=== PATIENT | female | born 1975 | race Caucasian/White ===

== ENCOUNTER 2022-01-05 01:43 | Day surgery (SDC) | payer OTHER, SELFPAY ==
[2021-12-20 15:15] VITALS: BMI 22.3
[2022-01-05 10:10] VITALS: BP 142/84; PULSE 74; RESP 18; TEMP 36.2; O2SAT 100
--- NOTE | 2022-01-05 10:24 | WPDANESEPPF ---
Anes - Initial Pre Proc Eval Procedure: Operation Date: 01/05/22 11:30 Proposed Procedures p Flexible Sigmoidoscopy - Lloyd Whitten MD Date/Time: 01/05/22 10:24 Surgeon: Lloyd Whitten MD Pre Op Diagnosis: constipation Patient Data Age: 46 Gender: F Height: 1.63 m Weight: 58.1 kg Last Vital Signs Temp 36.2 C L 01/05/22 10:10 Pulse 74 01/05/22 10:10 Resp 18 01/05/22 10:10 BP 142/84 H 01/05/22 10:10 Pulse Ox 100 01/05/22 10:10 O2 Del Method Room Air 01/05/22 10:10 Allergies Allergy/AdvReac Type Severity Reaction Status Date / Time sumatriptan [From Imitrex] Allergy Intermediate Migraine Verified 01/05/22 10:07 amoxicillin [From Augmentin] Allergy Mild Vomiting Verified 01/05/22 10:07 clavulanic acid Allergy Mild Vomiting Verified 01/05/22 10:07 [From Augmentin] Home Medications Medication Instructions Recorded Confirmed Type alprazolam 0.5 mg tablet 0.5 mg PO TID PRN Anxiety 11/04/21 12/20/21 History [id number]-[id number] 1 cap PO Q4H PRN Headache 11/04/21 12/20/21 History 50 mg-300 mg-40 mg capsule (Fioricet) folic acid 1 mg tablet 1 mg PO DAILY 11/04/21 12/20/21 History gabapentin 600 mg tablet 1,200 mg PO HS 11/04/21 12/20/21 History (Neurontin) hydrocodone 7.5 mg-acetaminophen 1 tablet PO Q4H PRN Pain 11/04/21 12/20/21 History 325 mg tablet linaclotide 145 mcg capsule 145 mcg PO DAILY #30 caps 11/04/21 12/20/21 Rx (Linzess) methotrexate sodium (PF) 50 mg 50 mg WEEKLY 11/04/21 12/20/21 History solution for injection mirtazapine 15 mg tablet (Remeron) 15 mg PO .PRN 11/04/21 12/20/21 History morphine 30 mg capsule,extended 30 mg PO Q8H 11/04/21 12/20/21 History release 24 hr multiphase mycophenolate mofetil 500 mg 1,000 mg PO Q12H 11/04/21 12/20/21 History tablet (CellCept) ondansetron HCl 8 mg tablet 8 mg PO Q8H PRN Nausea 11/04/21 12/20/21 History pantoprazole 40 mg tablet,delayed 40 mg PO QNOON 11/04/21 12/20/21 History release prednisone 5 mg tablet 10 mg PO DAILY 11/04/21 12/20/21 History tizanidine 4 mg capsule (Zanaflex) 4 mg PO TID PRN Muscle Spasm 11/04/21 12/20/21 History topiramate 100 mg tablet (Topamax) 100 mg PO BID 11/04/21 12/20/21 History tramadol 50 mg tablet 50 mg PO TID PRN Pain 11/04/21 12/20/21 History Rolaids (calcium carbonate) 1,177 mg BYMOUTH PRN PRN (Drug) 12/20/21 12/20/21 History Ingestion albuterol sulfate 90 mcg/actuation 2 puff inhalation QID PRN 12/20/21 12/20/21 History aerosol inhaler Shortness Of Breath Or Wheezing metoclopramide HCl 5 mg tablet 5 mg PO TID 12/20/21 12/20/21 History multivit with minerals-iron 18 1 tablet PO DAILY 12/20/21 12/20/21 History mg-folic ac 400 mcg-vit K 25 mcg tablet (Adults Multivitamin) Patient hx anesthesia problems: none Family hx anesthesia problems: none Results Review: All pre-operative results and documents have been reviewed as part of the pre-operative evaluation. [facility] Past Medical History Medical History Arthritis Constipation GERD (gastroesophageal reflux disease) Granulomatosis with polyangiitis Migraines Rectal lump Regurgitation of food Retained food in stomach Umbilical hernia Surgical History Surgical History H/O abdominal surgery H/O colectomy History of colostomy reversal Social History Social History Smoking packs per day: 2 Smoking cigarettes per day: 40.0 Years smoked: 20 Smoking pack-years: 40.00 Smoking status: Current every day smoker Tobacco type: cigarettes Additional smoking assessment comments: REDUCED AMT. TO 0.5/PK 2006 QUIT 08/2020 THEN RESTARTED 12/2020 6 CIG. DAY Alcohol intake: never Substance use: never Substance use type: does not use Living arrangements: with family Spiritual care concerns:
[2022-01-05] MEDS: LACTATED RINGERS 1,000 ML 150 ML IV CONT (10:28)
--- NOTE | 2022-01-05 10:58 | PM.HPGS ---
History of Present Illness History of Present Illness Consent: Risks, benefits, and alternatives have been discussed and questions answered. Patient agrees to proceed with procedure. Chief complaint: constipation Narrative: Mary Ann Joseph is a 46 year old female with constipation sometimes has to remove stool manually (better with linzess), also sensation of lump in rectum. She had in 2018 colon rupture that required colectomy, then reversal of colectomy. On immunossupresive mediation Review of Systems Constitutional: Constitutional: Denies headache(s) and Denies weakness Eyes: Eyes: Denies blurry vision ENT: Reports Normal hearing present, Denies headache(s) and Denies neck pain Cardiovascular: Cardiovascular: Denies chest pain and Denies dyspnea Respiratory: Respiratory: Denies dyspnea Gastrointestinal: Gastrointestinal: Reports no additional gastrointestinal complaints Genitourinary: Genitourinary: Denies dysuria Musculoskeletal: Musculoskeletal: Denies neck pain Integumentary/Breasts: Skin/Breast: Denies dry skin Neurologic: Reports Normal hearing present, Denies headache(s) and Denies weakness Psychiatric: Psychiatric: Denies anxiety Endocrine: Endocrine: Denies change in body appearance Hematologic/Lymphatic: Hematologic/Lymphatic: Denies easy bleeding Allergic/Immunologic: Allergic/Immunologic: Denies urticaria PMFSH Past Medical History Medical History Arthritis Constipation GERD (gastroesophageal reflux disease) Granulomatosis with polyangiitis Migraines Rectal lump Regurgitation of food Retained food in stomach Umbilical hernia Surgical History Surgical History H/O abdominal surgery H/O colectomy History of colostomy reversal Social History Social History Smoking packs per day: 2 Smoking cigarettes per day: 40.0 Years smoked: 20 Smoking pack-years: 40.00 Smoking status: Current every day smoker Tobacco type: cigarettes Additional smoking assessment comments: REDUCED AMT. TO 0.5/PK 2006 QUIT 08/2020 THEN RESTARTED 12/2020 6 CIG. DAY Alcohol intake: never Substance use: never Substance use type: does not use Living arrangements: with family Spiritual care concerns: No Meds Home Medications and Allergies Home Medications Medication Instructions Recorded Confirmed Type alprazolam 0.5 mg tablet 0.5 mg PO TID PRN Anxiety 11/04/21 12/20/21 History [id number] 1 cap PO Q4H PRN Headache 11/04/21 12/20/21 History 50 mg-300 mg-40 mg capsule (Fioricet) folic acid 1 mg tablet 1 mg PO DAILY 11/04/21 12/20/21 History gabapentin 600 mg tablet 1,200 mg PO HS 11/04/21 12/20/21 History (Neurontin) hydrocodone 7.5 mg-acetaminophen 1 tablet PO Q4H PRN Pain 11/04/21 12/20/21 History 325 mg tablet linaclotide 145 mcg capsule 145 mcg PO DAILY #30 caps 11/04/21 12/20/21 Rx (Linzess) methotrexate sodium (PF) 50 mg 50 mg WEEKLY 11/04/21 12/20/21 History solution for injection mirtazapine 15 mg tablet (Remeron) 15 mg PO .PRN 11/04/21 12/20/21 History morphine 30 mg capsule,extended 30 mg PO Q8H 11/04/21 12/20/21 History release 24 hr multiphase mycophenolate mofetil 500 mg 1,000 mg PO Q12H 11/04/21 12/20/21 History tablet (CellCept) ondansetron HCl 8 mg tablet 8 mg PO Q8H PRN Nausea 11/04/21 12/20/21 History pantoprazole 40 mg tablet,delayed 40 mg PO QNOON 11/04/21 12/20/21 History release prednisone 5 mg tablet 10 mg PO DAILY 11/04/21 12/20/21 History tizanidine 4 mg capsule (Zanaflex) 4 mg PO TID PRN Muscle Spasm 11/04/21 12/20/21 History topiramate 100 mg tablet (Topamax) 100 mg PO BID 11/04/21 12/20/21 History tramadol 50 mg tablet 50 mg PO TID PRN Pain 11/04/21 12/20/21 History Rolaids (calcium carbonate) 1,177 mg BYMOUTH PRN PRN (Drug) 12/20/21 12/20/21 History
[2022-01-05 11:15] VITALS: BP 101/54; PULSE 75; RESP 18; O2SAT 100
[2022-01-05 11:25] VITALS: BP 98/57; PULSE 63; RESP 13; O2SAT 100
[2022-01-05 11:35] VITALS: BP 111/63; PULSE 60; RESP 17; O2SAT 100
== END 2022-01-05 11:45 | disposition home or self-care (01) ==
PROVIDERS: Visit Provider Internal Medicine Gastroenterology
PROC: 0DJD8ZZ Inspection of Lower Intestinal Tract, Via Natural or Artificial Opening Endoscopic (ICD-10-PCS; CPT 45330; principal; 2022-01-05 11:30)
DX: K59.00 Constipation, unspecified (principal); K57.30 Diverticulosis of large intestine without perforation or abscess without bleeding; K64.4 Residual hemorrhoidal skin tags; K62.89 Other specified diseases of anus and rectum; Z98.0 Intestinal bypass and anastomosis status; Z90.49 Acquired absence of other specified parts of digestive tract; M19.90 Unspecified osteoarthritis, unspecified site; K21.9 Gastro-esophageal reflux disease without esophagitis; M31.30 Wegener's granulomatosis without renal involvement; F17.210 Nicotine dependence, cigarettes, uncomplicated; Z79.51 Long term (current) use of inhaled steroids; Z79.899 Other long term (current) drug therapy
CPT/HCPCS: 45330; J2001; J2704; J7120